=== PATIENT | female | born 1985 | race Caucasian/White ===

== ENCOUNTER 2024-05-19 16:45 | Inpatient (IN) ==
[2024-05-19] MEDS: SODIUM CHLORIDE 0.9% 1,000 ML IV ONE ×2 (17:19→17:56)
[2024-05-19 17:31] LABS: Basophils # (auto) 0.02 K/uL (0.00-0.20); Basophils % (auto) 0.1 %; Eosinophils # (auto) 0.09 K/uL (0.00-0.50); Eosinophils % (auto) 0.4 %; Hematocrit (blood only) 40.7 % (37.0-47.0); Hemoglobin 13.7 g/dl (12.0-16.0); Immature Granulocytes # (auto) 0.09 K/uL (0.01-0.20); Immature Granulocytes % (auto) 0.4 %; Lymphocytes # (auto) 1.57 K/uL (1.20-3.40); Lymphocytes % (auto) 7.7 %; Mean Corpuscular Hemoglobin 30.7 pg (25.0-34.0); Mean Corpuscular Hgb Conc 33.7 g/dL (32.0-36.0); Mean Corpuscular Volume 91.3 fL (80.0-100.0); Mean Platelet Volume 10.5 fL (9.4-12.4); Monocytes # (auto) 0.79 K/uL (0.11-0.59); Monocytes % (auto) 3.9 %; Neutrophils # (auto) 17.72 K/uL (1.40-6.50); Neutrophils % (auto) 87.5 %; Platelet Count 297 K/uL (130-400); RDW Coefficient of Variation 12.1 % (11.5-14.5); RDW Standard Deviation 40.3 fL (36.4-46.3); Red Blood Count 4.46 M/uL (4.20-5.40); White Blood Count 20.28 K/ul (4.8-10.8)
--- NOTE | 2024-05-19 17:41 | Emergency Department Note ---
Impression & Plan Nausea, vomiting, and diarrhea, Acute dehydration, Abdominal pain, Elevated lactic acid level, Acute hypokalemia, Leukocytosis, Acidosis ED Provider Note HISTORY OF PRESENT ILLNESS: Patient is a 38-year-old female presenting with vomiting, diarrhea and abdominal pain. Patient reports that symptoms started at 1300 today out of the blue. States that she started profusely vomiting and having some diarrhea. Reports she developed bilateral lower quadrant abdominal pain. Her [id number] at bedside reports that the patient came out of the bathroom and "looked white as a ghost and did not look well," prompting them to bring her to the emergency department. Patient reports she has had C-sections before but no other abdominal surgeries. Denies any chest pain or shortness of breath. Denies any recent travel or recent sick contact exposures. Denies any fevers. Denies any dysuria or hematuria. Currently complaining of a cramping lower abdominal pain. Patient does report after her vomiting she felt like her hands were numb and tingling. Denies recent falls or head injury. Denies any chiropractic manipulation of her neck ROS: as above PHYSICAL EXAM: Constitutional: Patient appears in no acute distress. HENT: Head: Normocephalic and atraumatic. Eyes: EOMI, PERRL Mouth/Throat: Mucous membranes moist. Neck: Trachea midline. Neck supple. Cardiovascular: Tachycardic with regular rhythm. No murmurs, rubs or gallops. Intact distal pulses. Pulmonary/Chest: No respiratory distress. Breath sounds clear and equal bilaterally. No wheezes or rales. Musculoskeletal: No edema, tenderness or deformity noted. Skin: Warm and dry. No rash, erythema, pallor or cyanosis Psychiatric: Appropriate mood and affect for situation. Neurological: Alert and keenly responsive. CN II-XII grossly intact, moving all extremities equally and fully. MDM: - Vitals signs showed hypotension - History obtained via patient. History as above. - Chronic conditions affecting care: None - Differential diagnoses include, but are not limited to: Viral syndrome; dehydration; appendicitis; colitis; UTI - Order placed for continuous cardiac monitoring. At this time, monitor showed rate of 87 bpm with normal sinus rhythm, per my interpretation. - External medical records reviewed. - EKG interpreted by myself showed normal sinus rhythm. Rate 86 bpm. QT 388. No acute ischemic changes - Laboratory workup interpreted by myself showed leukocytosis (WBC 20.28) with left shift; hypokalemia (K 3.2); elevated anion gap (14); hyperglycemia (glucose 169); elevated lactate (3.8); normal BNP; normal troponin; negative procalcitonin; normal liver function tests - VBG shows acidosis (pH 7.24) - Viral respiratory panel negative - Blood cultures obtained. - Patient given 2L NS in ER. Patient sepsis fluid volume resuscitation based on ideal body weight is 1568.10 mL. - Repeat lactate within normal limits - Empirically started on IV zosyn. Given 1g IV Tylenol for pain control - CT abdomen/pelvis with IV contrast showed liquid stool throughout the colon consistent with an enterocolitis/diarrheal illness. - On reassessment, patient complaining of nausea and pain. Given 1L NS, 4 mg IV zofran and 50 mcg IV fentanyl for continued nausea and abdominal pain. - Discussion was had with casework supervisor about patient's case and need for admission - Hospitalist consulted for admission - Patient admitted to [facility] service for further evaluation and management. ASSESSMENT AND PLAN: Diagnosis: nausea, vomiting, diarrhea; abdominal pain; leukocytosis; elevated lactic acid level; acute hypokalemia; acidosis; acute dehydration Plan: admit Past Med/Surg History Problem List (Updated 05/19/24 @ 20:55 by Uyen Hartman MD) Acidosis (Acute) Leukocytosis (Acute) Acute hypokalemia (Acute) Elevated lactic acid level (Acute) Abdominal pain (Acute) Acute dehydration (Acute) Nausea, vomiting, and diarrhea (Acute) Social History Smoking Status: Never smoker Preferred Language: [place] Feels Safe at Home: Yes Results & Data (ED) Vital Signs Vital Signs - 24 hr 05/19/24 16:49 05/19/24 17:14 05/19/24 19:21 Temperature 36.8 C Temperature Source Temporal Artery Scan Pulse Rate 91 H 86 Pulse Rate [Left Radial] Pulse Rate from SpO2 Sensor 99 H Respiratory Rate 22 16 Respiratory Effort / Characteristics Non-Labored Spontaneous Respiratory Depth Normal Respiratory Pattern Regular Blood Pressure 80/48 L 102/70 Blood Pressure [Right Arm] Blood Pressure Mean 58 80 Blood Pressure Mean [Right Arm] Pulse Oximetry 96 100 Oxygen Delivery Method Room Air Room Air Sepsis Recent Fever Within 48 Hours No Sepsis New/Unexplained Change in Mental Status No Sepsis Action Taken by Nursing No Action Required 05/19/24 19:23 05/19/24 19:23 05/19/24 19:39 Temperature Temperature Source Pulse Rate Pulse Rate [Left Radial] 78 Pulse Rate from SpO2 Sensor 97 H Respiratory Rate 20 Respiratory Effort / Characteristics Non-Labored Spontaneous Respiratory Depth Normal Respiratory Pattern Regular Blood Pressure Blood Pressure [Right Arm] 98/68 L Blood Pressure Mean Blood Pressure Mean [Right Arm] 78 Pulse Oximetry 96 96 100 Oxygen Delivery Method Room Air Room Air Sepsis Recent Fever Within 48 Hours Sepsis New/Unexplained Change in Mental Status Sepsis Action Taken by Nursing Laboratory Data 05/19/24 17:12 05/19/24 17:12 Lab Results 05/19/24 05/19/24 05/19/24 Range/Units 17:12 17:42 19:30 WBC 20.28 H (4.8-10.8) K/ul RBC 4.46 (4.20-5.40) M/uL Hgb 13.7 (12.0-16.0) g/dl Hct 40.7 (37.0-47.0) % MCV 91.3 (80.0-100.0) fL MCH 30.7 (25.0-34.0) pg MCHC 33.7 (32.0-36.0) g/dL RDW Std Deviation 40.3 (36.4-46.3) fL RDW Coeff of Jakub 12.1 (11.5-14.5) % Plt Count 297 (130-400) K/uL MPV 10.5 (9.4-12.4) fL Immature Gran % (Auto) 0.4 % Neut % (Auto) 87.5 % Lymph % (Auto) 7.7 % [place] % (Auto) 3.9 % Eos % (Auto) 0.4 % Baso % (Auto) 0.1 % Neut # (Auto) 17.72 H (1.40-6.50) K/uL Lymph # (Auto) 1.57 (1.20-3.40) K/uL [place] # (Auto) 0.79 H (0.11-0.59) K/uL Eos # (Auto) 0.09 (0.00-0.50) K/uL Baso # (Auto) 0.02 (0.00-0.20) K/uL Immature Gran # (Auto) 0.09 (0.01-0.20) K/uL VBG pH 7.24 L (7.36-7.41) VBG pCO2 46 (38-50) mmHg VBG pO2 33 mmHg VBG HCO3 20 mmol/L VBG O2 Saturation < 60.0 % VBG Base Excess -7.6 mEq/L Sodium 137 (136-145) mmol/L Potassium 3.2 L (3.5-5.1) mmol/L Chloride 101 (98-107) mmol/L Carbon Dioxide 22 (21-32) mmol/L Anion Gap 14 H (3-11) BUN 15 (6-23) mg/dl Creatinine 0.88 (0.6-1.2) mg/dl Est Cr Clr Drug Dosing Not Reportable Est GFR ( Amer) 95.9 ml/min Est GFR (Non-Af Amer) 82.8 ml/min BUN/Creatinine Ratio 17.0 (10-20) Glucose 169 H (70-99(Fasting)) mg/dl Lactate 3.8 H* 1.9 (0.4-2.0) mmol/L Calcium 9.9 (8.6-10.3) mg/dl Magnesium 1.7 (1.7-2.4) mg/dl Total Bilirubin 0.8 (0.2-1.0) mg/dl AST 17 (13-39) U/L ALT 12 (7-52) U/L Alkaline Phosphatase 69 (34-104) U/L Troponin I High Sens < 2.3 (0-14) pg/ml B-Natriuretic Peptide 8 (0-100) pg/ml Total Protein 8.0 (6.0-8.3) gm/dl Albumin 5.0 (3.4-5.0) gm/dl Globulin 3.0 (2.5-4.0) gm/dl Albumin/Globulin Ratio 1.7 (0.9-2) Procalcitonin < 0.02 (0-0.5) ng/ml Urine Color Urine Appearance (Clear) Urine pH (4.5-7.5) Ur Specific [place] (1.000-1.030) Urine Protein (Negative) Urine Glucose (UA) (Negative) Urine Ketones (Negative) Urine Blood (Negative) Urine Nitrite (Negative) Urine Bilirubin (Negative) Urine Urobilinogen (Negative) Ur Leukocyte Esterase (Negative) Adenovirus (PCR) Not Detected (NotDetected) B. pertussis DNA (PCR) Not Detected (NotDetected) B.parapertussis DNA PCR Not Detected (NotDetected) C. pneumoniae DNA (PCR) Not Detected (NotDetected) Coronavirus OC43 (PCR) Not Detected (NotDetected) Coronavirus HKU1 (PCR) Not Detected (NotDetected) Coronavirus 229E (PCR) Not Detected (NotDetected) SARS-CoV-2 (PCR) Not Detected (NotDetected) Coronavirus NL63 (PCR) Not Detected (NotDetected) Human Metapneumovir PCR Not Detected (NotDetected) Influenza Type A (PCR) Not Detected (NotDetected) Influenza Type B (PCR) Not Detected (NotDetected) M. pneumoniae (PCR) Not Detected (NotDetected) Parainfluenza 1 (PCR) Not Detected (NotDetected) Parainfluenza 2 (PCR) Not Detected (NotDetected) Parainfluenza 3 (PCR) Not Detected (NotDetected) Parainfluenza 4 (PCR) Not Detected (NotDetected) RSV (PCR) Not Detected (NotDetected) Entero/Rhino (PCR) Not Detected (NotDetected) 05/19/24 Range/Units Unknown WBC (4.8-10.8) K/ul RBC (4.20-5.40) M/uL Hgb (12.0-16.0) g/dl Hct (37.0-47.0) % MCV (80.0-100.0) fL MCH (25.0-34.0) pg MCHC (32.0-36.0) g/dL RDW Std Deviation (36.4-46.3) fL RDW Coeff of Jakub (11.5-14.5) % Plt Count (130-400) K/uL MPV (9.4-12.4) fL Immature Gran % (Auto) % Neut % (Auto) % Lymph % (Auto) % [place] % (Auto) % Eos % (Auto) % Baso % (Auto) % Neut # (Auto) (1.40-6.50) K/uL Lymph # (Auto) (1.20-3.40) K/uL [place] # (Auto) (0.11-0.59) K/uL Eos # (Auto) (0.00-0.50) K/uL Baso # (Auto) (0.00-0.20) K/uL Immature Gran # (Auto) (0.01-0.20) K/uL VBG pH (7.36-7.41) VBG pCO2 (38-50) mmHg VBG pO2 mmHg VBG HCO3 mmol/L VBG O2 Saturation % VBG Base Excess mEq/L Sodium (136-145) mmol/L Potassium (3.5-5.1) mmol/L Chloride (98-107) mmol/L Carbon Dioxide (21-32) mmol/L Anion Gap (3-11) BUN (6-23) mg/dl Creatinine (0.6-1.2) mg/dl Est Cr Clr Drug Dosing Est GFR ( Amer) ml/min Est GFR (Non-Af Amer) ml/min BUN/Creatinine Ratio (10-20) Glucose (70-99(Fasting)) mg/dl Lactate (0.4-2.0) mmol/L Calcium (8.6-10.3) mg/dl Magnesium (1.7-2.4) mg/dl Total Bilirubin (0.2-1.0) mg/dl AST (13-39) U/L ALT (7-52) U/L Alkaline Phosphatase (34-104) U/L Troponin I High Sens (0-14) pg/ml B-Natriuretic Peptide (0-100) pg/ml Total Protein (6.0-8.3) gm/dl Albumin (3.4-5.0) gm/dl Globulin (2.5-4.0) gm/dl Albumin/Globulin Ratio (0.9-2) Procalcitonin (0-0.5) ng/ml Urine Color Yellow Urine Appearance Clear (Clear) Urine pH 5.5 (4.5-7.5) Ur Specific [place] > 1.045 H (1.000-1.030) Urine Protein Negative (Negative) Urine Glucose (UA) Negative (Negative) Urine Ketones Negative (Negative) Urine Blood Negative (Negative) Urine Nitrite Negative (Negative) Urine Bilirubin Negative (Negative) Urine Urobilinogen Negative (Negative) Ur Leukocyte Esterase Negative (Negative) Adenovirus (PCR) (NotDetected) B. pertussis DNA (PCR) (NotDetected) B.parapertussis DNA PCR (NotDetected) C. pneumoniae DNA (PCR) (NotDetected) Coronavirus OC43 (PCR) (NotDetected) Coronavirus HKU1 (PCR) (NotDetected) Coronavirus 229E (PCR) (NotDetected) SARS-CoV-2 (PCR) (NotDetected) Coronavirus NL63 (PCR) (NotDetected) Human Metapneumovir PCR (NotDetected) Influenza Type A (PCR) (NotDetected) Influenza Type B (PCR) (NotDetected) M. pneumoniae (PCR) (NotDetected) Parainfluenza 1 (PCR) (NotDetected) Parainfluenza 2 (PCR) (NotDetected) Parainfluenza 3 (PCR) (NotDetected) Parainfluenza 4 (PCR) (NotDetected) RSV (PCR) (NotDetected) Entero/Rhino (PCR) (NotDetected) Administered Medications Sodium Chloride (Nss) 1,000 mls @ 125 mls/hr IV .Q8H STA Stop: 05/20/24 03:05 Last Admin: 05/19/24 19:30 Dose: 125 mls/hr Documented By: MICHAEL Discontinued Medications Fentanyl Citrate (Fentanyl Citrate Pf 100 Mcg/2 Ml Vial) 50 mcg IV NOW STA Stop: 05/19/24 19:43 Last Admin: 05/19/24 20:00 Dose: 50 mcg Documented By: CASSIE Sodium Chloride (Nss) 1,000 mls @ 999 mls/hr IV .Q1H1M ONE Stop: 05/19/24 17:57 Last Infusion: 05/19/24 19:24 Dose: Infused Documented By: Admin: 05/19/24 17:19 Dose: 999 mls/hr Documented By: CASSIE Sodium Chloride (Nss) 1,000 mls @ 999 mls/hr IV .Q1H1M ONE Stop: 05/19/24 18:05 Last Infusion: 05/19/24 19:24 Dose: Infused Documented By: Admin: 05/19/24 17:56 Dose: 999 mls/hr Documented By: CASSIE Piperacillin Sod/Tazobactam Sod (Zosyn) 4.5 gm in 100 mls @ 200 mls/hr IV NOW ONE Stop: 05/19/24 18:01 Last Infusion: 05/19/24 19:24 Dose: Infused Documented By: Admin: 05/19/24 17:56 Dose: 200 mls/hr Documented By: CASSIE Acetaminophen (Ofirmev) 1,000 mg in 100 mls @ 400 mls/hr IV NOW STA Stop: 05/19/24 17:55 Last Infusion: 05/19/24 19:24 Dose: Infused Documented By: Admin: 05/19/24 17:56 Dose: 400 mls/hr Documented By: CASSIE Ioversol (Optiray 320 100ml) 94 ml IV ONCE ONE Stop: 05/19/24 19:14 Last Admin: 05/19/24 19:13 Dose: 94 ml Documented By: ENEDINA Ondansetron HCl (Ondansetron Inj 2 Mg/Ml 2 Ml Vial) 4 mg IV NOW STA Stop: 05/19/24 19:43 Last Admin: 05/19/24 20:00 Dose: 4 mg Documented By: CASSIE Imaging Data Radiologist's Impression: Abdomen/Pelvis CT 05/19/24 17:41 CT SCAN OF THE ABDOMEN AND PELVIS WITH IV CONTRAST CLINICAL HISTORY: Lower abdominal pain. Nausea and vomiting. Diarrhea. COMPARISON STUDY: No priors. TECHNIQUE: Following the IV administration of 94 cc of Optiray 320, CT scan of the abdomen and pelvis is performed from the lung bases to the proximal femora. Images are reviewed in the axial, sagittal, and coronal planes. IV contrast was administered without complication. A dose lowering technique was utilized adhering to the principles of ALARA. CT DOSE: 854.59 mGy.cm FINDINGS: Lung bases: The heart is normal in size and without pericardial effusion. The lung bases are clear. Liver: The contrast-enhanced liver is normal in size, contour, and attenuation. There is no intrahepatic biliary ductal dilatation. The hepatic veins and portal veins are patent. Gallbladder: Unremarkable. Spleen: Normal in size and attenuation. Pancreas: Unremarkable. Adrenal glands: Unremarkable. Kidneys: The contrast enhanced kidneys are normal in size and without hydronephrosis. The kidneys enhance symmetrically. Abdominal vasculature: The abdominal aorta is normal in course and caliber. Bowel: There are scattered colonic diverticula without CT evidence of acute diverticulitis. Liquid stool is noted in the right colon. There is no significant colonic wall thickening or surrounding inflammation. There are also fluid-filled loops of small bowel. No bowel obstruction is seen. The appendix is well-visualized and normal. Peritoneum: There is no intraperitoneal free air or abdominal ascites. There is a fat-containing umbilical hernia. Lymphadenopathy: None. Pelvic viscera: The bladder, uterus, and adnexa are normal as visualized. There are small ovarian follicles. Trace free fluid is seen in the cul-de-sac. Skeletal structures: No lytic or blastic lesions are seen. IMPRESSION: 1. Liquid stool is seen throughout the colon. There are also fluid-filled loops of small bowel. No significant bowel wall thickening or surrounding inflammation is seen. Correlate clinically for evidence of a nonspecific enterocolitis/diarrheal illness. 2. Free fluid in cul-de-sac is nonspecific and likely physiologic. 3. Additional findings as above. ACT 112: Negative or not required by law. Electronically signed by: Alon Lei M.D. 05/19/2024 8:13 PM Discharge Plan Visit Data Chief Complaint: Flu Like Symptoms Stated Complaint: CONTINUAL VOMITING/DIARRHEA/LIMBS NUMB ED Provider: Uyen Hartman Discharge Problem: Nausea, vomiting, and diarrhea, Acute dehydration, Abdominal pain, Elevated lactic acid level, Acute hypokalemia, Leukocytosis, Acidosis Forms Stand Alone Forms: [facility] Referrals Referrals: PCP,NO [Primary Care Provider] -
[2024-05-19 17:45] LABS: Alanine Aminotransferase 12 U/L (7-52); Albumin Globulin Ratio 1.7 (0.9-2); Alkaline Phosphatase 69 U/L (34-104); Anion Gap 14 (3-11); Aspartate Aminotransferase 17 U/L (13-39); Bilirubin,Total 0.8 mg/dl (0.2-1.0); Blood Urea Nitrogen 15 mg/dl (6-23); Calcium 9.9 mg/dl (8.6-10.3); Carbon Dioxide 22 mmol/L (21-32); Chloride 101 mmol/L (98-107); Est GFR (African American) 95.9 ml/min; Est GFR (Non-African American) 82.8 ml/min; Glucose 169 mg/dl (70-99(Fasting)); Magnesium 1.7 mg/dl (1.7-2.4); Potassium 3.2 mmol/L (3.5-5.1); Sodium 137 mmol/L (136-145)
[2024-05-19 17:51] LABS: Base Excess VBG -7.6 mEq/L; HCO3 VBG 20 mmol/L; Oxygen Saturation VBG < 60.0 %; PCO2 VBG 46 mmHg (38-50); PO2 VBG 33 mmHg; pH VBG 7.24 (7.36-7.41)
[2024-05-19 17:51] LABS: Troponin I High Sensitivity < 2.3 pg/ml (0-14)
[2024-05-19] MEDS: ACETAMINOPHEN 1,000 MG/100 ML VIAL IV STA (17:56)
[2024-05-19] MEDS: PIPERACILLIN/TAZOBACTAM 4.5 GM/100 ML BAG IV ONE (17:56)
[2024-05-19 18:33] LABS: Adenovirus PCR Not Detected (NotDetected); Bordetella parapertussis PCR Not Detected (NotDetected); Bordetella pertussis PCR Not Detected (NotDetected); Chlamydia pneumoniae PCR Not Detected (NotDetected); Coronavirus 229E PCR Not Detected (NotDetected); Coronavirus CoV-2 (COVID19)PCR Not Detected (NotDetected); Coronavirus HKU1 PCR Not Detected (NotDetected); Coronavirus NL63 PCR Not Detected (NotDetected); Coronavirus OC43PCR Not Detected (NotDetected); Human Metapneumovirus PCR Not Detected (NotDetected); Influenza A PCR Not Detected (NotDetected); Influenza B PCR Not Detected (NotDetected); Mycoplasma pneumoniae PCR Not Detected (NotDetected); Parainfluenza Virus 1 PCR Not Detected (NotDetected); Parainfluenza Virus 2 PCR Not Detected (NotDetected); Parainfluenza Virus 3 PCR Not Detected (NotDetected); Parainfluenza Virus 4 PCR Not Detected (NotDetected); Respiratory Syncytial VirusPCR Not Detected (NotDetected); Rhinovirus/Enterovirus PCR Not Detected (NotDetected)
[2024-05-19] MEDS: OPTIRAY 320 100ml IV ONE (19:13)
[2024-05-19] MEDS: SODIUM CHLORIDE 0.9% 1,000 ML IV STA (19:30)
[2024-05-19] MEDS: fentaNYL citrate PF 100 MCG/2 ML VIAL IV STA (20:00)
[2024-05-19] MEDS: ONDANSETRON INJ 2 MG/ML 2 ML VIAL IV STA ×2 (20:00→21:56)
[2024-05-19 20:13] LABS: Appearance Urine Clear (Clear); Bilirubin Urine Negative (Negative); Blood Urine Negative (Negative); Color Urine Yellow; Glucose Urine UA Negative (Negative); Ketones Urine Negative (Negative); Leukocyte Esterase Urine Negative (Negative); Nitrite Urine Negative (Negative); Protein Urine Negative (Negative); Specific Gravity Urine > 1.045 (1.000-1.030); Urobilinogen Urine Negative (Negative); pH Urine 5.5 (4.5-7.5)
--- NOTE | 2024-05-19 20:14 | CT Scan Report ---
CT SCAN OF THE ABDOMEN AND PELVIS WITH IV CONTRAST CLINICAL HISTORY: Lower abdominal pain. Nausea and vomiting. Diarrhea. COMPARISON STUDY: No priors. TECHNIQUE: Following the IV administration of 94 cc of Optiray 320, CT scan of the abdomen and pelvi s is performed from the lung bases to the proximal femora. Images are reviewed in the axial, sagittal , and coronal planes. IV contrast was administered without complication. A dose lowering technique wa s utilized adhering to the principles of ALARA. CT DOSE: 854.59 mGy.cm FINDINGS: Lung bases: The heart is normal in size and without pericardial effusion. The lung bases are clear. Liver: The contrast-enhanced liver is normal in size, contour, and attenuation. There is no intrahepa tic biliary ductal dilatation. The hepatic veins and portal veins are patent. Gallbladder: Unremarkable. Spleen: Normal in size and attenuation. Pancreas: Unremarkable. Adrenal glands: Unremarkable. Kidneys: The contrast enhanced kidneys are normal in size and without hydronephrosis. The kidneys enh ance symmetrically. Abdominal vasculature: The abdominal aorta is normal in course and caliber. Bowel: There are scattered colonic diverticula without CT evidence of acute diverticulitis. Liquid st ool is noted in the right colon. There is no significant colonic wall thickening or surrounding infla mmation. There are also fluid-filled loops of small bowel. No bowel obstruction is seen. The appendix is well-visualized and normal. Peritoneum: There is no intraperitoneal free air or abdominal ascites. There is a fat-containing umbi lical hernia. Lymphadenopathy: None. Pelvic viscera: The bladder, uterus, and adnexa are normal as visualized. There are small ovarian fol licles. Trace free fluid is seen in the cul-de-sac. Skeletal structures: No lytic or blastic lesions are seen. IMPRESSION: 1. Liquid stool is seen throughout the colon. There are also fluid-filled loops of small bowel. No si gnificant bowel wall thickening or surrounding inflammation is seen. Correlate clinically for evidenc e of a nonspecific enterocolitis/diarrheal illness. 2. Free fluid in cul-de-sac is nonspecific and likely physiologic. 3. Additional findings as above. ACT 112: Negative or not required by law. Electronically signed by: Alon Lei M.D. 05/19/2024 8:13 PM
--- NOTE | 2024-05-19 20:45 | History & Physical Report ---
Date of Service May 19, 2024 Assessment & Plan (1) Enterocolitis: Plan: Acute onset of N/V/D and abdominal pain at 1 PM on 05/19 Leukocytosis at 20.28 with a neutrophil predominance; nonfebrile on arrival, but patient does endorse chills A/P CT revealed nonspecific enterocolitis/diarrheal illness PCR stool/C. difficile ordered, pending Zofran and Compazine as needed for nausea/vomiting Acetaminophen 1000 mg IV q8h as needed for pain/fever Dilaudid 0.25-0.5 mg IV q4h as needed for breakthrough pain Metronidazole 500 mg IV q8h Ciprofloxacin 400 mg IV q12h A.m. CBC, BMP, mag (2) Sepsis: Plan: GI source; leukocytosis + tachycardia Hypotensive at 80/48 on arrival IVF bolus of NSS 2000 mL IV given on arrival; continue with LR at 125mL/hr x 2 Lactate 3.8-->1.8 Blood cultures ordered, pending (3) Hypokalemia: Plan: K 3.2 on arrival Likely secondary to GI losses K rider 20mEq IV Recheck a.m. K (4) Acidosis: Plan: VBG revealed pH at 7.24 Suspect secondary lactic acidosis IVF resuscitation (as above) (5) Elevated lactic acid level: Plan Disposition: Admit to PCU telemetry Full code Regular diet as tolerated VTE PPx: SCDs History of Present Illness Chief Complaint: Flu-like symptoms, abdominal pain Primary Care Provider: LILIANA PCP Flavia is a 38-year-old female with PMH of colitis. She presented on 05/19 for acute onset of abdominal pain and N/V/D around 1300 on 05/19. Patient is from [place], but was in [place] visiting in-laws for her daughter's [facility] gymnastics camp this weekend. The vomiting and diarrhea then came on abruptly. No blood in her stool. No hematemesis. She has had 5-6 episodes of diarrhea, which she characterizes as a liquidy, bile colored stool; mucous-y. She denies any recent antibiotic use. No history of IBS, Crohn's disease, UC, or food allergies/intolerances such as gluten allergy. She does have history of colitis, but the last case was 5 to 6 years ago and did not involve vomiting. She does not take medicine on daily basis. She denies any recent travel besides coming from [place] to [place]; only recent trip was to [place] in February. She endorses low transverse abdominal pain which she rates 1/10 at present, but 7/10 at worst. The pain is intermittent and comes in waves every 20 minutes. She characterizes it as a sharp stabbing pain, that is worst in the LLQ. Patient's only prior abdominal surgery was at her ; no PMH of appendectomy or cholecystectomy. Family history of gallbladder issues. Patient denies any recent changes in diet. She reports she and her in-laws were grilling last night, and that she had a burger and a half bagel earlier this morning. She denies smoking/tobacco use. She does endorse occasional social alcohol use; 1 glass of wine last night; 1-2 drinks per week. Patient is hypotensive at 98/68 at time of admission; vitals otherwise stable. ED course: NSS 2000 mL IV Acetaminophen 1000 mg IV Zosyn 4.5 g IV Fentanyl 50 mcg IV Zofran 4 mg IV ROS: Patient endorses chills, sweating, dizziness/lightheadedness (which patient attr ibutes to pain medicine; fentanyl), liquidy diarrhea, nausea, vomiting, intermittent sharp lower abdominal pain, and hand numbness (resolved). Patient denies fever, headache, chest pain, SOB, chest pressure, chest palpitations, cough, pleuritic CP, hematemesis, blood in the urine/stool, melena, burning with urination, lower back pain, or dysuria. Allergies Allergy/AdvReac Type Severity Reaction Status Date / Time No Known Allergies Allergy Verified 05/20/24 00:06 Home Medications Medication Instructions Recorded Confirmed Type acetaminophen 500 mg tablet 1,000 mg PO Q8 PRN Fever Or Pain 05/19/24 05/19/24 History (Tylenol Extra Strength) omeprazole 20 mg tablet,delayed 20 mg PO DAILY PRN Acid Reflux 05/19/24 05/19/24 History release ondansetron 4 mg disintegrating 4 mg translingual Q8 PRN Nausea 05/19/24 05/19/24 History tablet Past Med/Surg History Problem List (Updated 05/19/24 @ 21:30 by Bartolo Cavanaugh PA-C) Hypokalemia Enterocolitis Sepsis Acidosis (Acute) Leukocytosis (Acute) Acute hypokalemia (Acute) Elevated lactic acid level (Acute) Abdominal pain (Acute) Acute dehydration (Acute) Nausea, vomiting, and diarrhea (Acute) Social History Smoking Status: Never smoker Preferred Language: Malay Feels Safe at Home: Yes Review of Systems Review of Systems: See HPI above Physical Exam Physical Exam: General: Acute physical distress secondary to abdominal pain and nausea; pleasant affect; non-toxic appearing; cooperative; SpO2 100% on RA HEENT: normocephalic, atraumatic; no scleral icterus; PERRLA; patient wears contacts; moist mucus membrane; vision and hearing grossly intact Neck: supple; no lymphadenopathy; trachea midline Skin: warm, dry without signs of tenting; no cyanosis; no rashes, bruising, lesions, or erythema noted CV: chest wall NTP; RRR; S1/S2 normal; no murmurs/rubs/gallops; pulses intact and symmetric at radial, DP, and PT Lungs: no acute respiratory distress; symmetrical chest wall expansion; clear breath sounds across all lung mccann w/o adventitious sounds; no wheezing ABD: Soft; RLQ is TTP, LLQ is very TTP; BS present; no rebound/guarding; no distention; no rashes or bruising on the abdomen or flanks MSK: no tics or fasciculations; no edema noted in the LEs b/l, nonerythematous Neuro: A&Ox3; normal mood and affect; fluent speech; no focal deficits; sensation grossly intact in the LEs b/l Results & Data Results & Data Vital Signs (Past 12 Hours) Vital Signs Temp Pulse Pulse Resp BP BP Pulse Ox 05/19/24 19:39 100 05/19/24 19:23 96 05/19/24 19:23 78 20 98/68 L 96 05/19/24 19:21 16 102/70 100 05/19/24 17:14 86 05/19/24 16:49 36.8 C 91 H 22 80/48 L 96 O2 Del Method 05/19/24 19:39 05/19/24 19:23 Room Air 05/19/24 19:23 Room Air 05/19/24 19:21 Room Air 05/19/24 17:14 05/19/24 16:49 Room Air Laboratory Results Abnormal lab results 06/05/19/24 05/19/24 Range/Units 17:12 17:42 Unknown WBC 20.28 H (4.8-10.8) K/ul Neut # (Auto) 17.72 H (1.40-6.50) K/uL Armstrong # (Auto) 0.79 H (0.11-0.59) K/uL VBG pH 7.24 L (7.36-7.41) Potassium 3.2 L (3.5-5.1) mmol/L Anion Gap 14 H (3-11) Glucose 169 H (70-99(Fasting)) mg/dl Lactate 3.8 H* (0.4-2.0) mmol/L Ur Specific [place] > 1.045 H (1.000-1.030) Diagnostic Findings Abdomen/Pelvis CT 05/19/24 17:41 CT SCAN OF THE ABDOMEN AND PELVIS WITH IV CONTRAST CLINICAL HISTORY: Lower abdominal pain. Nausea and vomiting. Diarrhea. COMPARISON STUDY: No priors. TECHNIQUE: Following the IV administration of 94 cc of Optiray 320, CT scan of the abdomen and pelvis is performed from the lung bases to the proximal femora. Images are reviewed in the axial, sagittal, and coronal planes. IV contrast was administered without complication. A dose lowering technique was utilized adhering to the principles of ALARA. CT DOSE: 854.59 mGy.cm FINDINGS: Lung bases: The heart is normal in size and without pericardial effusion. The lung bases are clear. Liver: The contrast-enhanced liver is normal in size, contour, and attenuation. There is no intrahepatic biliary ductal dilatation. The hepatic veins and portal veins are patent. Gallbladder: Unremarkable. Spleen: Normal in size and attenuation. Pancreas: Unremarkable. Adrenal glands: Unremarkable. Kidneys: The contrast enhanced kidneys are normal in size and without hydronephrosis. The kidneys enhance symmetrically. Abdominal vasculature: The abdominal aorta is normal in course and caliber. Bowel: There are scattered colonic diverticula without CT evidence of acute diverticulitis. Liquid stool is noted in the right colon. There is no significant colonic wall thickening or surrounding inflammation. There are also fluid-filled loops of small bowel. No bowel obstruction is seen. The appendix is well-visualized and normal. Peritoneum: There is no intraperitoneal free air or abdominal ascites. There is a fat-containing umbilical hernia. Lymphadenopathy: None. Pelvic viscera: The bladder, uterus, and adnexa are normal as visualized. There are small ovarian follicles. Trace free fluid is seen in the cul-de-sac. Skeletal structures: No lytic or blastic lesions are seen. IMPRESSION: 1. Liquid stool is seen throughout the colon. There are also fluid-filled loops of small bowel. No significant bowel wall thickening or surrounding inflammation is seen. Correlate clinically for evidence of a nonspecific enterocolitis/diarrheal illness. 2. Free fluid in cul-de-sac is nonspecific and likely physiologic. 3. Additional findings as above. ACT 112: Negative or not required by law. Electronically signed by: Alon Lei M.D. 05/19/2024 8:13 PM ECG Additional Comments: ECG on arrival revealed NSR at 86 bpm; QTc 464 Code Status & VTE Plan Code Status Full code VTE Prophylaxis Plan VTE Prophylaxis will be ordered: Yes Supervising Physician Co-Signing Physician Notes Attending addendum: I have physically seen this patient, have supervised the medical residents activities, and agree with the H&P unless as otherwise noted. Assessment and Plan: Enterocolitis- CT scan of abdomen and pelvis with fluid-filled colon, suggestive of enterocolitis/diarrheal illness Stool for C. difficile negative Stool PCR pending Cipro 400 mg IV every 12 hours Flagyl 500 mg IV every 8 hours Acetaminophen 1 g IV every 8 hours as needed for mild pain or fever Dilaudid 0.25 mg IV every 4 hours as needed for moderate pain Dilaudid 0.5 mg IV every 4 hours as needed for severe pain Sepsis due to enterocolitis- Blood pressure upon arrival 80/48 Status post 2 L normal saline IV fluid bolus by the ED Continue rehydration with LR at 125 MLS per hour x 2 L Lactate improved from 3.8-1.9 Follow blood culture and sensitivity Hypokalemia- Potassium 3.2 upon arrival Magnesium 1.7 upon arrival Replaced IV and recheck laboratories in a.m. PG Care Time/CCT Total # of Minutes Spent Total Time Spent with Patient: Total time spent is greater than 50% in coordination of care (as documented) at patient's floor/unit and/or counseling patient: [place] [address] INT INP/OBS CARE 3/75MIN Patient Type New Medical Decision Making High Complexity Diagnoses Enterocolitis K52.9 Sepsis A41.9 Hypokalemia E87.6 Acidosis E87.20 Elevated lactic acid level R79.89
[2024-05-19] MEDS: MAGNESIUM SULFATE / D5W 1 GM/100 ML BAG IV SCH (21:23)
[2024-05-19] MEDS: POTASSIUM CHLORIDE / WTR 10 MEQ/100 ML PLCT IV SCH (21:23)
[2024-05-19] MEDS: LACTATED RINGER'S 1,000 ML IV SCH (21:57)
[2024-05-19 22:39] LABS: BUN Creatinine Ratio 15.1 (10-20); Calcium 7.8 mg/dl (8.6-10.3); Creatinine Clr Calc Pharmacy 85.1 ml/min; Est GFR (African American) 98.6 ml/min; Est GFR (Non-African American) 85.1 ml/min; Potassium 4.2 mmol/L (3.5-5.1)
[2024-05-20] MEDS: Patient's ALLERGY Info needs ENTERED SCH (00:04)
[2024-05-20] MEDS: Patient's HEIGHT &/or WEIGHT Needed SCH (00:05)
[2024-05-20 00:27] LABS: Adenovirus F 40/41 PCR Not Detected (NotDetected); Astrovirus PCR Not Detected (NotDetected); Campylobacter PCR Not Detected (NotDetected); Cryptosporidium PCR Not Detected (NotDetected); Cyclospora cayetanensis PCR Not Detected (NotDetected); Entamoeba histolytica PCR Not Detected (NotDetected); Enteroaggregative E.coli(EAEC) Not Detected (NotDetected); Enteropathogenic E.coli (EPEC) Not Detected (NotDetected); Enterotoxigenic E.coli (ETEC) Not Detected (NotDetected); Giardia lamblia PCR Not Detected (NotDetected); Plesiomonas shigelloides PCR Not Detected (NotDetected); Rotavirus A PCR Not Detected (NotDetected); Salmonella PCR Not Detected (NotDetected); Sapovirus PCR Not Detected (NotDetected); Shiga-like Toxin E.coli (STEC) Not Detected (NotDetected); Shigella/Enteroinvasive E.coli Not Detected (NotDetected); Vibrio cholerae PCR Not Detected (NotDetected); Vibrio species PCR Not Detected (NotDetected); Yersinia enterocolitica PCR Not Detected (NotDetected)
[2024-05-20 00:52] LABS: Norovirus GI/GII PCR DETECTED (NotDetected)
[2024-05-20] MEDS ORDERED: PROCHLORPERAZINE 5 MG in SYRINGE 4 ML IV PRN (01:37)
[2024-05-20] MEDS ORDERED: ONDANSETRON INJ 2 MG/ML 2 ML VIAL IV PRN (01:37)
[2024-05-20] MEDS ORDERED: HYDROmorphone INJ 0.5 MG/0.5 ML SYR IV PRN ×2 (01:37→01:55)
[2024-05-20] MEDS: CIPROFLOXACIN / D5W 400 MG/200 ML BAG IV STA (03:36)
[2024-05-20] MEDS: metroNIDAZOLE 500 MG/100 ML BAG IV STA (03:36)
[2024-05-20 03:55] LABS: Hematocrit (blood only) 33.4 % (37.0-47.0); Hemoglobin 11.3 g/dl (12.0-16.0); Mean Corpuscular Hemoglobin 31.2 pg (25.0-34.0); Mean Corpuscular Hgb Conc 33.8 g/dL (32.0-36.0); Mean Corpuscular Volume 92.3 fL (80.0-100.0); Mean Platelet Volume 10.3 fL (9.4-12.4); Platelet Count 191 K/uL (130-400); RDW Coefficient of Variation 12.3 % (11.5-14.5); RDW Standard Deviation 42.3 fL (36.4-46.3); Red Blood Count 3.62 M/uL (4.20-5.40); White Blood Count 12.92 K/ul (4.8-10.8)
[2024-05-20 04:10] LABS: BUN Creatinine Ratio 11.1 (10-20); Calcium 7.9 mg/dl (8.6-10.3); Creatinine Clr Calc Pharmacy 90.4 ml/min; Est GFR (Non-African American) 91.5 ml/min; Magnesium 2.1 mg/dl (1.7-2.4); Potassium 4.1 mmol/L (3.5-5.1)
[2024-05-20 04:17] LABS: Basophils # (auto) 0.02 K/uL (0.00-0.20); Basophils % (auto) 0.2 %; Immature Granulocytes # (auto) 0.04 K/uL (0.01-0.20); Immature Granulocytes % (auto) 0.3 %; Lymphocytes # (auto) 0.31 K/uL (1.20-3.40); Lymphocytes % (auto) 2.4 %; Monocytes # (auto) 0.32 K/uL (0.11-0.59); Monocytes % (auto) 2.5 %; Neutrophils # (auto) 12.23 K/uL (1.40-6.50); Neutrophils % (auto) 94.6 %
[2024-05-20] MEDS: ENOXAPARIN INJ 40 MG/0.4 ML SYR SQ SCH (07:41)
--- NOTE | 2024-05-20 07:54 | XRay Report ---
SINGLE VIEW CHEST CLINICAL HISTORY: Sepsis. FINDINGS: An AP, portable, upright chest radiograph is obtained. No prior studies are available for c omparison at the time of dictation. The cardiomediastinal silhouette is unremarkable. The lungs and p leural spaces are clear. No pneumothorax is seen. The bony thorax is grossly intact. IMPRESSION: No active disease in the chest. ACT 112: Negative or not required by law. Electronically signed by: Alon Lei M.D. 05/20/2024 7:53 AM
[2024-05-20] MEDS: SODIUM CHLORIDE 0.9% 500 ML IV SCH (08:58)
--- NOTE | 2024-05-20 09:06 | Electrocardiogram Report ---
Test Reason : Blood Pressure : / mmHG Vent. Rate : 086 BPM Atrial Rate : 086 BPM P-R Int : 136 ms QRS Dur : 086 ms QT Int : 388 ms P-R-T Axes : 067 051 047 degrees QTc Int : 464 ms Normal sinus rhythm Poor R wave progression, consider anterior GA vs. lead placement vs. LVH Abnormal ECG No previous ECGs available Confirmed by Angel Pack ([id number]) on 05/20/2024 9:06:03 AM Referred By: REFERRED SELF Confirmed By:Angel Pack
[2024-05-20] MEDS ORDERED: metroNIDAZOLE 500 MG/100 ML BAG IV SCH (12:00)
[2024-05-20] MEDS: ACETAMINOPHEN 1,000 MG/100 ML VIAL IV PRN (13:19)
--- NOTE | 2024-05-20 15:12 | Hospitalist Progress Note ---
Date of Service May 20, 2024 Assessment & Plan (1) Hypovolemic shock: Plan: volume loss sec to severe N/V/D IVF resuscitation in ED with 3L NSS. Lactate improved from 3.8-1.9 systolic dropped to 80s again this am with tachycardia. -s/p another 500ml bolus continue maintenance fluid LR 125ml/hr (2) Enterocolitis: Plan: Enterocolitis- CT scan of abdomen and pelvis with fluid-filled colon, suggestive of enterocolitis/diarrheal illness Stool for C. difficile negative viral origin - norovirus. will d/c abx. continue supportive care. (3) Nausea, vomiting, and diarrhea: Plan: see No. 2 (4) Acute dehydration: Plan: IVF resuscitation. Admission and Anticipated Discharge Date Admission Date: May 19, 2024 Subjective seen this am. continuing with diarrhea. no vomiting and had appetite to eat. no fever. feeling exhausted Physical Exam Constitutional: felt exhausted from excessive diarrhea. Respiratory: no respiratory distress Cardiovascular: normal rhythm. tachycardic Gastrointestinal (Abdomen): normal bowel sounds, soft, nontender, no hepatosplenomegaly Psychiatric: A+Ox3, euthymic affect Results & Data Results & Data Vital Signs (Past 12 Hours) Vital Signs Temp Pulse Pulse Resp BP BP Pulse Ox 05/20/24 13:41 05/20/24 13:35 38.8 C H 105 H 16 116/67 98 05/20/24 12:00 111 H 34 H 92/61 L 96 05/20/24 11:30 112 H 19 96 05/20/24 11:00 112 H 19 97 05/20/24 10:33 112 H 20 96 05/20/24 10:00 87/53 L 05/20/24 10:00 111 H 15 98 05/20/24 09:39 108 H 19 96 05/20/24 09:39 111 H 18 90/57 L 97 05/20/24 09:30 90/57 L 05/20/24 09:00 93/49 L 05/20/24 08:46 106 H 18 88/59 L 100 05/20/24 08:36 114 H 24 95 05/20/24 08:33 119 H 18 80/68 L 99 05/20/24 08:30 120 H 16 90 05/20/24 08:03 105 H 19 99 05/20/24 07:45 108 H 14 96 05/20/24 07:04 108 H 05/20/24 07:00 104 H 21 98 05/20/24 07:00 97/59 L 05/20/24 06:30 108 H 22 98 05/20/24 06:12 108 H 18 97 05/20/24 05:36 112 H 16 97 05/20/24 05:02 05/20/24 05:00 98/65 L 05/20/24 04:50 106 H 22 97 05/20/24 04:38 111 H 17 98 05/20/24 04:10 05/20/24 04:02 106 H 16 98 05/20/24 03:30 106 H 14 97 05/20/24 03:30 99/69 L 05/20/24 03:24 99 H 18 98 O2 Del Method 05/20/24 13:41 Room Air 05/20/24 13:35 Room Air 05/20/24 12:00 05/20/24 11:30 05/20/24 11:00 05/20/24 10:33 05/20/24 10:00 05/20/24 10:00 05/20/24 09:39 05/20/24 09:39 Room Air 05/20/24 09:30 05/20/24 09:00 05/20/24 08:46 Room Air 05/20/24 08:36 05/20/24 08:33 Room Air 05/20/24 08:30 05/20/24 08:03 05/20/24 07:45 05/20/24 07:04 05/20/24 07:00 05/20/24 07:00 05/20/24 06:30 05/20/24 06:12 05/20/24 05:36 05/20/24 05:02 Room Air 05/20/24 05:00 05/20/24 04:50 05/20/24 04:38 05/20/24 04:10 Room Air 05/20/24 04:02 05/20/24 03:30 05/20/24 03:30 05/20/24 03:24
[2024-05-20] MEDS ORDERED: CIPROFLOXACIN / D5W 400 MG/200 ML BAG IV SCH (16:00)
--- NOTE | 2024-05-21 06:59 | Hospitalist Progress Note ---
Date of Service May 21, 2024 Assessment & Plan Plan Hypovolemic shock: Plan: volume loss sec to severe N/V/D IVF resuscitation in ED with 3L NSS. Lactate improved from 3.8-1.9 systolic dropped to 80s again this am with tachycardia. -s/p another 500ml bolus continue maintenance fluid LR 125ml/hr (2) Enterocolitis: Plan: Enterocolitis- CT scan of abdomen and pelvis with fluid-filled colon, suggestive of entero colitis/diarrheal illness Stool for C. difficile negative viral origin - norovirus. will d/c abx. continue supportive care. (3) Nausea, vomiting, and diarrhea: Plan: see No. 2 (4) Acute dehydration: Plan: IVF resuscitation. Admission and Anticipated Discharge Date Admission Date: May 19, 2024 Subjective Pt is a [] yo [] with a past medical history of [] who presents to the hospital on [] for []. Review of Systems Review of Systems: Constitutional: denies fever, chills, [] HEENT: denies congestion, sore throat Cardio: denies chest pain, palpitations Resp: denies shortness of breath, cough GI: denies abdominal pain, nausea, vomiting, constipation, diarrhea : denies pain with urination, change in urinary frequency Neuro: denies new numbness, tingling, weakness Physical Exam Physical Exam: General:Alert and oriented, no acute distress, [] HEENT: Normocephalic, moist oral mucosa, Cardio: Regular rate and rhythm, no murmur, Resp:Lungs clear to auscultation b/l, no wheezes or rhonchi, GI: Soft and nontender, nondistended, bowel sounds active Skin: Warm, pink, dry, Psych: Mood-affect congruence. Results & Data Results & Data Vital Signs (Past 12 Hours) Vital Signs Temp Pulse Pulse Resp BP Pulse Ox O2 Del Method 05/21/24 03:41 37.6 C H 102 H 18 107/68 95 Room Air 05/20/24 22:51 37.5 C 106 H 18 109/71 97 Room Air 05/20/24 22:00 102 H 05/20/24 20:00 Room Air 05/20/24 19:21 37.6 C H 93 H 18 109/73 99 Room Air
[2024-05-21 07:12] LABS: Basophils # (auto) 0.01 K/uL (0.00-0.20); Basophils % (auto) 0.2 %; Eosinophils # (auto) 0.03 K/uL (0.00-0.50); Eosinophils % (auto) 0.7 %; Hematocrit (blood only) 33.2 % (37.0-47.0); Hemoglobin 10.9 g/dl (12.0-16.0); Immature Granulocytes # (auto) 0.01 K/uL (0.01-0.20); Immature Granulocytes % (auto) 0.2 %; Lymphocytes # (auto) 1.32 K/uL (1.20-3.40); Lymphocytes % (auto) 29.6 %; Mean Corpuscular Hemoglobin 30.9 pg (25.0-34.0); Mean Corpuscular Hgb Conc 32.8 g/dL (32.0-36.0); Mean Corpuscular Volume 94.1 fL (80.0-100.0); Mean Platelet Volume 10.4 fL (9.4-12.4); Monocytes # (auto) 0.62 K/uL (0.11-0.59); Monocytes % (auto) 13.9 %; Neutrophils # (auto) 2.47 K/uL (1.40-6.50); Neutrophils % (auto) 55.4 %; Platelet Count 168 K/uL (130-400); RDW Coefficient of Variation 12.6 % (11.5-14.5); RDW Standard Deviation 43.7 fL (36.4-46.3); Red Blood Count 3.53 M/uL (4.20-5.40); White Blood Count 4.46 K/ul (4.8-10.8)
[2024-05-21 07:24] LABS: BUN Creatinine Ratio 6.3 (10-20); Calcium 7.9 mg/dl (8.6-10.3); Est GFR (African American) 107.6 ml/min; Est GFR (Non-African American) 92.9 ml/min; Potassium 3.9 mmol/L (3.5-5.1)
[2024-05-21] MEDS: PSYLLIUM or GUAR GUM FIBER 4GM PACKET PO ONE (09:55)
--- NOTE | 2024-05-21 11:29 | Discharge Summary ---
Date of Service May 21, 2024 Admission HPI Per Admitting Provider Flavia is a 38-year-old female with PMH of colitis. She presented on 05/19 for acute onset of abdominal pain and N/V/D around 1300 on 05/19. Patient is from [place], but was in [place] visiting in-laws for her daughter's [facility] gymnastics camp this weekend. The vomiting and diarrhea then came on abruptly. No blood in her stool. No hematemesis. She has had 5-6 episodes of diarrhea, which she characterizes as a liquidy, bile colored stool; mucous-y. She denies any recent antibiotic use. No history of IBS, Crohn's disease, UC, or food allergies/intolerances such as gluten allergy. She does have history of colitis, but the last case was 5 to 6 years ago and did not involve vomiting. She does not take medicine on daily basis. She denies any recent travel besides coming from [place] to [place]; only recent trip was to [place] in February. She endorses low transverse abdominal pain which she rates 1/10 at present, but 7/10 at worst. The pain is intermittent and comes in waves every 20 minutes. She characterizes it as a sharp stabbing pain, that is worst in the LLQ. Patient's only prior abdominal surgery was at her ; no PMH of appendectomy or cholecystectomy. Family history of gallbladder issues. Patient denies any recent changes in diet. She reports she and her in-laws were grilling last night, and that she had a burger and a half bagel earlier this morning. She denies smoking/tobacco use. She does endorse occasional social alcohol use; 1 glass of wine last night; 1-2 drinks per week. Patient is hypotensive at 98/68 at time of admission; vitals otherwise stable. ED course: NSS 2000 mL IV Acetaminophen 1000 mg IV Zosyn 4.5 g IV Fentanyl 50 mcg IV Zofran 4 mg IV ROS: Patient endorses chills, sweating, dizziness/lightheadedness (which patient att ributes to pain medicine; fentanyl), liquidy diarrhea, nausea, vomiting, intermittent sharp lower abdominal pain, and hand numbness (resolved). Patient denies fever, headache, chest pain, SOB, chest pressure, chest palpitations, cough, pleuritic CP, hematemesis, blood in the urine/stool, melena, burning with urination, lower back pain, or dysuria. Admission Exam Per Admitting Provider General: Acute physical distress secondary to abdominal pain and nausea; pleasant affect; non-toxic appearing; cooperative; SpO2 100% on RA HEENT: normocephalic, atraumatic; no scleral icterus; PERRLA; patient wears contacts; moist mucus membrane; vision and hearing grossly intact Neck: supple; no lymphadenopathy; trachea midline Skin: warm, dry without signs of tenting; no cyanosis; no rashes, bruising, lesions, or erythema noted CV: chest wall NTP; RRR; S1/S2 normal; no murmurs/rubs/gallops; pulses intact and symmetric at radial, DP, and PT Lungs: no acute respiratory distress; symmetrical chest wall expansion; clear breath sounds across all lung mccann w/o adventitious sounds; no wheezing ABD: Soft; RLQ is TTP, LLQ is very TTP; BS present; no rebound/guarding; no distention; no rashes or bruising on the abdomen or flanks MSK: no tics or fasciculations; no edema noted in the LEs b/l, nonerythematous Neuro: A&Ox3; normal mood and affect; fluent speech; no focal deficits; sensation grossly intact in the LEs b/l Principal Diagnosis Norovirus gastroenteritis Discharge Exam General:Alert and oriented, no acute distress, HEENT: Normocephalic, moist oral mucosa, Cardio: Regular rate and rhythm, no murmur, Resp:Lungs clear to auscultation b/l, no wheezes or rhonchi, GI: Soft and nontender, nondistended, bowel sounds active Skin: Warm, pink, dry, Discharge Data Allergies Allergy/AdvReac Type Severity Reaction Status Date / Time No Known Allergies Allergy Verified 05/20/24 00:06 Consultations 05/19/24 20:53 ED Decision to Admit Stat Ordered Studies 05/19/24 17:41 CT Abd and Pelvis [CT abd pelvis IV con only] Stat Hospital Course (1) Acute dehydration: (2) Gastroenteritis due to norovirus: Plan Pt is a 38 yo female with no significant past med hx that presents to the hosp [facility] on 05/19/24 for acute gastroenteritis with acute dehydration related to norovirus infection. #Acute dehydration, resolved - noted to be very volume depleted on admission due to severe N/V/D - given 3L NSS in the ED with lactate improvement from 3.8 to 1.9, given another 500 mL bolus after - intake has improved dramatically from last night into this morning and pt notes small volume of diarrhea just every few hours now (none overnight) - vitals have improved, HR now 70-80s #Gastroenteritis with norovirus - CT scan of abdomen and pelvis with fluid-filled colon, suggestive of enterocolitis/diarrheal illness - Stool for C. difficile negative - provided supportive care Pt advised to f/u with PCP in 1 week and continue hydration and rest in the meantime. Total Time Total Time Spent Total Time Spent (In Minutes): As per attending attestation Discharge Plan Discharge Items Patient Disposition: Home - Self-Care Reason For Visit: ACUTE ONSET OF N/V/D Discharge Diagnosis: Norovirus Gastroenteritis Condition on Discharge: Good Activity: Resume your previous activity Non-emergency contact: Primary Care Provider Call non-emergency contact if: your symptoms worsen Follow-up/Referrals: PCP,NO [Primary Care Provider] - Diet: Regular and Low Fiber Diet Comment: supplement with yogurt or other probiotics Addtl Attending Provider Instructions: You were admitted to the hospital with a viral gastroenteritis in relation to a norovirus infection (aka a "stomach bug") leading to dehydration. This virus can cause people to get very sick with nausea, vomiting, and diarrhea, which can lead to dehydration. As your diarrhea has slowed and you are now tolerating oral intake of solids and, more importantly, fluids, we feel it is safe for you to continue to recover at home. You should follow up with your family physician in one week. Continue to rest and keep hydrated. Pending Studies at Discharge: No Stand-Alone Forms: My [facility] Medications and DC Order Prescriptions: Continued acetaminophen [Tylenol Extra Strength] 500 mg Tablet 1,000 mg PO Q8 PRN (Reason: Fever Or Pain) ondansetron 4 mg tablet,disintegrating 4 mg translingual Q8 PRN (Reason: Nausea) omeprazole 20 mg Tablet,Delayed Release (Dr/Ec) 20 mg PO DAILY PRN (Reason: Acid Reflux) Discharge Orders: Discharge Order (Routine); Ordered 05/21/24 Ordered By: Jigna Castellon Admission Data Admit Date/Time: 05/19/24 21:13 Attending Provider: Marta Rivas Admit Provider: Bartolo Cavanaugh Primary Care Provider: PCP,NO Other Providers: Deric Garcia Other Interventions: Discharge Summary Assessment (RN) Last Done: 05/21/24 11:39 Supervising Physician Co-Signing Physician Notes Attending Physician Supervision Note: I independently interviewed and examined the patient and verified the maria history and physical, reviewed labs and image studies and agree with findings and care plan noted above. Resident Activity Tracking Resident Involvement: Resident Care Provided Care Provided: Adult Hospital Medicine
[2024-05-22 02:51] LABS: A calco-baum cmplx NotReported Not Detected (NotDetected); Bact fragilis Not Reported Not Detected (NotDetected); Blood Culture Id Panel PCR Panel Negative (NotDetected); C auris Not Reported Not Detected (NotDetected); Calbicans Not Reported Not Detected (NotDetected); Candida glabrata Not Reported Not Detected (NotDetected); Candida krusei Not Reported Not Detected (NotDetected); Cneoformans/gatti Not Reported Not Detected (NotDetected); Cparapsilosis Not Reported Not Detected (NotDetected); E cloacae compx Not Reported Not Detected (NotDetected); Efaecalis Not Reported Not Detected (NotDetected); Efaecium Not Reported Not Detected (NotDetected); Enterobacterales Not Reported Not Detected (NotDetected); Escherichia coli Not Reported Not Detected (NotDetected); H influenzae Not Reported Not Detected (NotDetected); K aerogenes Not Reported Not Detected (NotDetected); Koxytoca Not Reported Not Detected (NotDetected); Kpneumoniae grp Not Reported Not Detected (NotDetected); Lmonocyt Not Reported Not Detected (NotDetected); N meningitidis Not Reported Not Detected (NotDetected); P aeruginosa Not Reported Not Detected (NotDetected); Proteus spp Not Reported Not Detected (NotDetected); Salmonella spp Not Reported Not Detected (NotDetected); Smarcescens Not Reported Not Detected (NotDetected); Staph lugdunensis Not Reported Not Detected (NotDetected); Staph spp. Not Reported Not Detected (NotDetected); Staphaureus Not Reported Not Detected (NotDetected); Staphepi Not Reported Not Detected (NotDetected); Stenmaltophilia Not Reported Not Detected (NotDetected); Strep agal(GrpB) Not Reported Not Detected (NotDetected); Strep pneum Not Reported Not Detected (NotDetected); Strep pyog (GrpA) Not Reported Not Detected (NotDetected); Strep spp Not Reported Not Detected (NotDetected)
== END 2024-05-21 12:11 | disposition home or self-care (01) | DRG 391 ==
LOC: ED 16:45 → EDINP 21:13 → SUATTDRO 21:13 → 2E 05-20 01:37